=== PATIENT | female | born 1975 | race Caucasian/White ===

== ENCOUNTER 2016-10-18 22:03 | Emergency (ER) | payer SELFPAY ==
--- NOTE | ~2016-10-18 | CR141 ---
[facility]. [facility] A Service of [facility] & [facility] RADIOLOGY TEXT RESULTS PATIENT: GEORGEJuly LOCATION: SED : 71 UNIT #: [id number] AGE: [address]: Mira Pruett APRN SEX: F ORDER DR: [id number] [address] [address] [id number] E MR#: [id number] Acc #: [id number] NAME: GEORGE MCKENZIE Kemar. : 1975 SEX: F STUDY DATE/TIME: 10/18/2016 22:44 UNIT: SED ROOM: STUDY DESCRIPTION: CR Hand Min 3 Views Lt Attending Physician: Mira Pruett A.P.R.N. Ordering Physician: Mira Pruett A.P.R.N. Primary Care Physician: [facility] MEDICAL IMAGING REPORT This report is preliminary unless electronic signature is present. EXAM Left hand. INDICATIONS Puncture wound from dog bite to the left hand, which happened tonight. Pain. FINDINGS Three views of the left hand were obtained. The patient could not remove her ring. Bones are normal. There are no foreign bodies. IMPRESSION Normal left hand. Dictated by... Otf Francis M.D. THIS IS AN ELECTRONICALLY VERIFIED REPORT Otf Francis M.D. at 10/19/2016 8:21 PM REVA/rema TD: 10/19/2016 13:40 JOB #: [id number] MEDICAL IMAGING REPORT Page 1 of 1
[~2016-10-18 22:03] MED LIST: ACETAMINOPHEN PO; ALBUTEROL17 G1 IH; ALBUTEROL17 GM INH; BACTRIM DS TABL1 TA2 PO; CHLOR-TRIMETON4 MG PO; CILOXAN 0.3% O2.5 M1 AD; DOXYCYCLIN25 MG/5 ML PO; FLEXERIL PO; IBUPROFEN800 MG PO; MACROBID100 M1 PO; NASONEX17 GM; NO MEDICATIONS; PEN-VEE K PO; PREDNISONE PO; PREDNISONE1 MG PO; PYRIDIUM PO; SUDAFED PO; TYLENOL SINUS1 EAC1 PO; ULTRAM PO; ZITHROMAX PO; ZOVIRAX400 MG PO
[2016-10-18] MEDS ORDERED: PROZAC PO (22:15)
== END 2016-10-18 23:25 | disposition home or self-care (01) ==
LOC: SED 22:03
DX: S61.452A Open bite of left hand, initial encounter (principal); Z23 Encounter for immunization; F17.210 Nicotine dependence, cigarettes, uncomplicated; Z79.899 Other long term (current) drug therapy; W54.0XXA Bitten by dog, initial encounter; Y92.009 Unspecified place in unspecified non-institutional (private) residence as the place of occurrence of the external cause
CPT/HCPCS: 73130; 90471; 90715; 99283